=== PATIENT | female | born 1970 | race Caucasian/White ===

== ENCOUNTER → 2017-10-01 09:59 | Outpatient (CLI) | payer OTHER, SELFPAY ==
--- NOTE | 2017-10-01 | PATH_ITS ---
Note [facility] Accession Number: [id number] TESTS RESULT FLAG UNITS REF RANGE LAB Clinician Provided Cytology Information No. of containers..01 ThinPrep Vial No. of containers..00 Previously Prepared Cytology Slide R INFERIOR THYROID DIAGNOSIS: 02 RIGHT INFERIOR THYROID NODULE: BETHESDA CATEGORY III. FOLLICULAR LESION OF UNDETERMINED SIGNIFICANCE. COMMENT The specimen consists of abundant follicular cells with scant colloid. A few microfollicles are present with mild nuclear pleomorphism and overlapping. Cytologic features of papillary carcinoma are not identified. The differential diagnosis includes cellular adenomatoid nodule and follicular neoplasm. A repeat aspirate after an appropriate interval of observation may be helpful if clinically indicated. Pathologist ICD10: 02 R89.6 02 Mireya Harkins MD, Pathologist NPI- [id number] Ari Liang, Air Surveillance Operator ([facility]) 01 30 CC, PINK, CLEAR Also, received 5 alcohol fixed, 5 quick stained, and 1 RNA vial for studies. /HKH FLAG LEGEND: L-Low Normal,H-High Normal,LL-Alert Low,HH-Alert High <-Panic Low,>-Panic High,A-Abnormal,AA-Critical Abnormal Performed at: 01 =Z [facility] [address] [address], [place] [address] Blaise oBnilla MD, 02 LCLWA [facility] [address] [place] [id number] Mehran Garcia MD, A duplicate report has been generated due to demographic updates. Performed at: [address] [address], [place], [place] [id number] MD Blaise Bonilla MD Phone: [phone]
--- NOTE | 2017-10-01 | DI.US.S_ITS ---
PROCEDURE: US FINE NEEDLE ASPIRATION INDICATIONS: 47 year-old female with dominant inferior right thyroid nodule. TECHNIQUE: The indications, alternatives, benefits, risks, and complications of the procedure were explained to the patient. Written informed consent was obtained and placed in the chart. The thyroid region was examined sonographically and a site was chosen for ultrasound guided percutaneous sampling. The skin was prepared and draped in the usual fashion, and anesthetized with 1% lidocaine infiltrated from the skin down to the thyroid gland. Multiple passes were then performed, with contents emptied into an appropriate pathology specimen container. A bandage was applied to the area of access at completion of the study. COMPARISON: [facility], [place], US THYROID, 09/07/2017, 21:04. FINDINGS: Location(s) of lesion(s) sampled: Inferior right thyroid lobe dominant nodule, with intermediate suspicion morphology. Larue: 25 and 22 gauge hypodermic needles. Number of passes: 6 total; 4 with 25 gauge, and 2 with 22 gauge. Medications: 1% lidocaine for local anaesthesia. Complications: None. IMPRESSION: Successful ultrasound-guided thyroid nodule fine needle aspiration, with cytology results pending. Please see chart below for management recommendations based on cytology results. [place] [facility] ReportingRecommendationsNon-diagnostic* Repeat US-guided FNA, with on-site cytology evaluation if possible. * Repeated non-diagnostic nodules without high suspicion US features: close observation vs surgical consult. * Consider surgery if nodule has high suspicion US features, grows >20% in 2 dimensions on followup, or patient has clinical risk factors for malignancy. Benign* If nodule has high suspicion US features: repeat US and FNA within 12 months. * If nodule has low to intermediate suspicion US features: repeat US at 12-24 months. If nodule grows (20% increase in at least 2 dimensions, with minimal increase of 2 mm or >50% change in volume), or development of new suspicious US features, then repeat FNA or continue followup. * If nodule has very low suspicion US features: followup US at >24 months. Atypia of undetermined significance, follicular lesion of undetermined significanceRepeat FNA, molecular testing, followup US, or surgical consult.Follicular neoplasm, suspicious for follicular neoplasmSurgical consult; also consider molecular testing. Suspicious for malignancySurgical consult.MalignantSurgical consult. Dictated by: Eh Olmstead M.D. on 10/01/2017 at 11:31 Approved by: Eh Olmstead M.D. on 10/01/2017 at 11:35
== END ==
PROVIDERS: Visit Provider Otolaryngology
DX: E04.1 Nontoxic single thyroid nodule (principal)
CPT/HCPCS: 10022; 76942

== ENCOUNTER → 2019-09-14 07:20 | Outpatient (CLI) | payer OTHER, SELFPAY ==
--- NOTE | 2019-09-14 | DI.US.S_ITS ---
PROCEDURE: US THYROID INDICATIONS: FOLLOW-UP NODULES TECHNIQUE: Real-time scanning was performed of the thyroid gland, with image documentation. COMPARISON: [facility], US, US FINE NEEDLE ASPIRATION, 10/01/2017, 10:35. FINDINGS: Right: Thyroid lobe measures 2.8 x 3.2 x 6.2 cm, and is heterogeneous in echotexture. Left: Thyroid lobe measures 1.4 x 1.4 x 4.8 cm, and is heterogeneous in echotexture. Isthmus: 2 mm thick. Nodule number: 1 Location: Left thyroid lobe middle third Size: 1.3 x 1.0 x 1.9 cm. Composition: Predominantly cystic Echogenicity: Hypoechoic Shape: Wider than tall Margins: Smoothly marginated Echogenic foci: Several punctate Total points: 5 ACR TI-RADS category: Category 4, and given the average size of less than 1.5 cm followup by ultrasound is recommended in 1, 2, 3 and 5 years from initial identification (10/01/17) Nodule number: 2 Location: Middle third left thyroid lobe Size: 1.3 x 1.0 x 1.0 cm. Composition: Solid Echogenicity: Isoechoic Shape: Wider than tall Margins: Smoothly marginated Echogenic foci: None Total points: 3 ACR TI-RADS category: Category 3, and given the average size of less than 1.5 cm followup sonographic evaluation is recommended at 1, 3, and 5 years from initial identification in 2018. Nodule number: 3 Location: Inferior third left thyroid lobe Size: 1.5 x 0.6 x 0.9 cm. Composition: Solid Echogenicity: Hypoechoic Shape: Wider than tall Margins: Ill-defined Echogenic foci: None Total points: 3 ACR TI-RADS category: Category 3, and given the small size followup by ultrasound at 1, 3 and 5 years from initial identification is recommended (2018). Nodule number: 4 Location: Lower two thirds right thyroid lobe Size: 3.8 x 2.5 x 3.1 cm. Composition: Solid Echogenicity: Hypoechoic Shape: Wider than tall Margins: Smoothly marginated Echogenic foci: None Total points: 4 ACR TI-RADS category: Category 4, this nodule was previously biopsied, repeat biopsy could be performed if clinically indicated. Otherwise, followup at 1, 2, 3 and 5 years from initial identification would be recommended. Nodule number: 5 Location: Superior third right thyroid lobe Size: 1.1 x 0.9 x 0.9 cm. Composition: Solid Echogenicity: Isoechoic Shape: Wider than tall Margins: Smoothly marginated Echogenic foci: None Total points: 4 ACR TI-RADS category: Category 4, and given small size less than 1.5 cm average followup in 1, 2, 3 and 5 years from the initial identification is recommended IMPRESSION: Followup recommendations based on standard evaluation of multiple thyroid nodules present bilaterally is available above. Please note that this patient has a dominant right inferior thyroid nodule which was previously biopsied. ACR TI-RADS definitions and recommendations: TI-RADS 1 (benign): 0 points. FNA not needed. TI-RADS 2 (not suspicious): 2 points. FNA not needed. TI-RADS 3 (mildly suspicious): 3 points. * FNA if 2.5 cm or larger, follow up if 1.5 cm or larger (at 1, 3, and 5 years). TI-RADS 4 (moderately suspicious): 4-6 points. * FNA if 1.5 cm or larger, follow up if 1 cm or larger (at 1, 2, 3, and 5 years). TI-RADS 5 (highly suspicious): 7 points or more. * FNA if 1 cm or larger, follow up if 0.5 cm or larger (every year for 5 years). Dictated by: Ahmet Lora M.D. on 09/14/2019 at 12:57 Approved by: Ahmet Lora M.D. on 09/14/2019 at 13:39
== END ==
PROVIDERS: PCP Nurse Practitioner; Referring Provider Nurse Practitioner; Visit Provider Nurse Practitioner
DX: E04.2 Nontoxic multinodular goiter (principal)
CPT/HCPCS: 76536

== ENCOUNTER → 2021-03-01 09:21 | Outpatient (CLI) | payer OTHER, SELFPAY ==
--- NOTE | 2021-03-01 | DI.US.S_ITS ---
PROCEDURE: US THYROID INDICATIONS: THYROID NODULES TECHNIQUE: Real-time scanning was performed of the thyroid gland, with image documentation. COMPARISON: US, US FINE NEEDLE ASPIRATION, 10/01/2017, 10:35. [facility], [place], US THYROID, 09/07/2017, 21:04. [facility], US, US THYROID, 09/14/2019, 7:49. FINDINGS: Right: Thyroid lobe measures 6.8 x 3.4 x 2.8 cm, and is diffusely heterogeneous in echotexture. Left: Thyroid lobe measures 5.8 x 1.5 x 1.6 cm, and is diffusely heterogeneous in echotexture. Isthmus: 2.1 mm thick. Nodule number: 1 Location: Left superior Size: 0.9 x 0.6 x 0.5 cm. Composition: Solid Echogenicity: Hypoechoic Shape: wider than tall. Margins: Smooth Echogenic foci: None Total points: 4 ACR TI-RADS category: Moderately suspicious Nodule number: 2 Location: Left mid posterior Size: Unchanged at 1.2 x 1.0 x 0.4 cm. Composition: Solid Echogenicity: Hypoechoic Shape: wider than tall. Margins: Ill-defined Echogenic foci: None Total points: 5 ACR TI-RADS category: Moderately suspicious Nodule number: 3 Location: Left inferior Size: 0.7 x 0.4 x 0.4 cm. Composition: Solid Echogenicity: Hypoechoic Shape: wider than tall. Margins: Smooth Echogenic foci: None Total points: 4 ACR TI-RADS category: Moderately suspicious Nodule number: 4 Location: Right inferior (previously biopsied) Size: Unchanged at 3.8 x 3.3 x 2.6 cm. Composition: Solid Echogenicity: Hypoechoic Shape: wider than tall. Margins: Smooth Echogenic foci: None Total points: 4 ACR TI-RADS category: Moderately suspicious Nodule number: 5 Location: Right superior Size: Unchanged 0.9 x 1.0 x 1.0 cm. Composition: Solid Echogenicity: Hypoechoic Shape: wider than tall. Margins: Smooth Echogenic foci: Not requested. Total points: 4 ACR TI-RADS category: Moderately suspicious IMPRESSION: Stable appearance of previously visualized thyroid nodules and there are new subcentimeter nodules on the left as above. Recommend continued followup ultrasound as detailed below. ACR TI-RADS definitions and recommendations: TI-RADS 1 (benign): 0 points. FNA not needed. TI-RADS 2 (not suspicious): 2 points. FNA not needed. TI-RADS 3 (mildly suspicious): 3 points. * FNA if 2.5 cm or larger, follow up if 1.5 cm or larger (at 1, 3, and 5 years). TI-RADS 4 (moderately suspicious): 4-6 points. * FNA if 1.5 cm or larger, follow up if 1 cm or larger (at 1, 2, 3, and 5 years). TI-RADS 5 (highly suspicious): 7 points or more. * FNA if 1 cm or larger, follow up if 0.5 cm or larger (every year for 5 years). Dictated by: Deacon Hutchinson [facility] Interpreted: Blaise Ocampo MD on 03/01/2021 at 11:10 Transcribed by: MARCELL on 03/01/2021 at 11:15 Approved by: Blaise Ocampo M.D. on 03/02/2021 at 1:02
== END ==
PROVIDERS: PCP Physician Assistant; Referring Provider Physician Assistant; Visit Provider Physician Assistant
DX: E04.2 Nontoxic multinodular goiter (principal)
CPT/HCPCS: 76536

== ENCOUNTER → 2021-10-04 14:39 | Outpatient (CLI) | payer OTHER, SELFPAY ==
--- NOTE | 2021-10-04 | DI.US.S_ITS ---
PROCEDURE: US THYROID INDICATIONS: SINGLE THYROID NODULE TECHNIQUE: Real-time scanning was performed of the thyroid gland, with image documentation. COMPARISON: [facility], US, US THYROID, 03/01/2021, 9:54. FINDINGS: Right: Thyroid lobe measures 6.2 x 2.8 x 3.0 cm, and is homogeneous in echotexture. Left: Thyroid lobe measures 4.3 x 1.9 x 1 point cm, and is homogenous in echotexture. Isthmus: 0.3 cm thick. Nodule number: Right #1 Location: Right superior posterior Size: 1.0 x 0.9 x 0.7 cm, not previously measured Composition: Solid Echogenicity: Hypoechoic Shape: Wider than tall Margins: Smooth Echogenic foci: None Total points: 4 ACR TI-RADS category: Moderately suspicious Nodule number: Right #2 Location: Right superior anterior Size: 0.7 x 0.7 x 0.5 cm (previously 1.0 x 0.9 x 1.0 cm) Composition: Solid Echogenicity: Hypoechoic Shape: Wider than tall Margins: Smooth Echogenic foci: None Total points: 4 ACR TI-RADS category: Moderately suspicious Nodule number: Right #3 Location: Right inferior Size: 3.9 x 3.5 x 2.8 cm (previously 3.8 x 3.3 x 2.6 cm) Composition: Predominantly solid Echogenicity: Hypoechoic Shape: wider than tall. Margins: Smooth Echogenic foci: None Total points: 4 ACR TI-RADS category: Moderately suspicious Nodule number: Left #1 Location: Left superior lateral Size: 0.8 x 0.5 x 0.5 cm (previously 0.9 x 0.6 x 0.5 cm). Composition: Solid Echogenicity: Isoechoic Shape: wider than tall. Margins: Smooth Echogenic foci: None Total points: 3 ACR TI-RADS category: Mildly suspicious Additional less suspicious small left-sided thyroid nodules are also seen. IMPRESSION: Multiple stable thyroid nodules as well as a few small subcentimeter nodules that may be new. Recommend continued ultrasound follow-up based on guidelines provided below. ACR TI-RADS definitions and recommendations: TI-RADS 1 (benign): 0 points. FNA not needed. TI-RADS 2 (not suspicious): 2 points. FNA not needed. TI-RADS 3 (mildly suspicious): 3 points. * FNA if 2.5 cm or larger, follow up if 1.5 cm or larger (at 1, 3, and 5 years). TI-RADS 4 (moderately suspicious): 4-6 points. * FNA if 1.5 cm or larger, follow up if 1 cm or larger (at 1, 2, 3, and 5 years). TI-RADS 5 (highly suspicious): 7 points or more. * FNA if 1 cm or larger, follow up if 0.5 cm or larger (every year for 5 years). Dictated by: Sahil Perez M.D. on 10/04/2021 at 16:25 Approved by: Sahil Perez M.D. on 10/04/2021 at 16:34
== END ==
PROVIDERS: PCP Physician Assistant; Referring Provider Physician Assistant; Visit Provider Physician Assistant
DX: E04.2 Nontoxic multinodular goiter (principal)
CPT/HCPCS: 76536

== ENCOUNTER → 2022-06-25 13:34 | Outpatient (CLI) | payer OTHER, SELFPAY ==
[2022-06-25 14:38] LABS: Add Manual Diff / Slide Review NO; Basophils Absolute Auto 100 /uL (0-100); Basophils Percent Auto 1.7 % (0-2); Eosinophils Absolute Auto 200 /uL (0-450); Eosinophils Percent Auto 2.5 % (2-4); Hematocrit 41.4 % (36-46); Hemoglobin 13.9 g/dL (12.0-16.0); Lymphocytes Absolute Auto 3000 /uL (1100-4500); Lymphocytes Percent Auto 37.2 % (25-40); Mean Corpuscular HGB Conc 33.5 % (30-36); Mean Corpuscular Hemoglobin 28.8 PG (26-34); Mean Corpuscular Volume 85.9 fL (80-100); Monocytes Absolute Auto 700 /uL (0-900); Monocytes Percent Auto 8.1 % (3-14); Neutrophils Absolute Auto 4100 /uL (1500-7000); Neutrophils Percent Auto 50.5 % (50-75); Platelet Count 331 X10^3/uL (150-400); Red Blood Cell Count 4.82 X10^6/uL (4.0-5.2); Red Cell Distribution Width 13.5 % (11.6-14.8)
[2022-06-25 14:55] LABS: Hemoglobin A1C% w Est Avg Glu 5.9 % (4.0-6.0)
[2022-06-25 14:59] LABS: Alanine Aminotransferase 20 IU/L (<35); Albumin 4.3 g/dL (3.5-5.0); Albumin Globulin Ratio 1.5 (1.0-2.8); Alkaline Phosphatase 85 U/L (38-126); Aspartate Aminotransferase 21 IU/L (14-36); BUN Creatinine Ratio 14.9 (6-22); Bilirubin Total 0.5 mg/dL (0.2-1.3); Blood Urea Nitrogen 10 mg/dL (7-17); Calcium 9.2 mg/dL (8.4-10.2); Carbon Dioxide 28 mmol/L (22-32); Chloride 98 mmol/L (98-107); Cholesterol 249 mg/dL (140-199); Estimated Glomerular Filt Rate > 60 mL/min (>60); Globulin 2.9 g/dL (1.7-4.1); Glucose 98 mg/dL (70-100); HDL Cholesterol 80 mg/dL (40-60); HEMOLYSIS < 15 (0-50); LDL Cholesterol Calculated 134 mg/dL (<100); Potassium 4.1 mmol/L (3.4-5.1); Sodium 135 mmol/L (137-145); Total Protein 7.2 g/dL (6.3-8.2); Triglycerides 175 mg/dL (35-150)
[2022-06-25 15:24] LABS: Thyroid Stimulating Hormone 0.336 uIU/mL (0.47-4.68)
[2022-06-25 17:22] LABS: Creatinine Urine Random 17.1 mg/dL
[2022-06-25 17:25] LABS: Microalbumin Urine Random < 0.6 mg/dL (0-1.6)
[2022-06-27 15:41] LABS: Thyroid Peroxidase Antibodies 13 IU/mL (0-34); Triiodothyronine T3 Total 118 ng/dL (71-180)
[2022-07-11 20:07] LABS: Thyroglobulin Level 65 ng/mL (.)
== END ==
PROVIDERS: PCP Physician Assistant; Referring Provider Family Medicine; Visit Provider Family Medicine
DX: E88.81 Metabolic syndrome and other insulin resistance (principal); R73.03 Prediabetes; I10 Essential (primary) hypertension; E04.1 Nontoxic single thyroid nodule; R09.89 Other specified symptoms and signs involving the circulatory and respiratory systems
CPT/HCPCS: 36415; 80053; 80061; 82043; 82570; 83036; 83525; 84432; 84436; 84443; 84480; 85025; 86376

== ENCOUNTER → 2022-07-02 10:59 | Outpatient (CLI) | payer OTHER, SELFPAY ==
--- NOTE | 2022-07-02 | DI.US.S_ITS ---
PROCEDURE: US THYROID INDICATIONS: Nontoxic single thyroid nodule TECHNIQUE: Real-time scanning was performed of the thyroid gland, with image documentation. COMPARISON: [facility], US, US THYROID, 10/04/2021, 15:54. FINDINGS: New right superior thyroid nodule measuring 1 cm, solid and hypoechoic with no internal echogenic foci. New left mid thyroid nodule measuring 5 mm, solid and hypoechoic with no internal echogenic foci. New left medial inferior thyroid nodule measuring 1 cm, spongiform and benign in appearance. Previously described right superior thyroid nodule is decreased in size, again appearing solid and hypoechoic. Previously described right middle/inferior thyroid nodule is unchanged in size, again predominantly solid and hypoechoic but with no internal echogenic foci. Previously described left superior lateral thyroid nodule is unchanged in size. IMPRESSION: Previously described thyroid nodules are all unchanged in size. There are 3 new thyroid nodules identified, all mildly suspicious and less than 1 cm in size. Continued follow-up of these nodules is recommended. Dictated by: Atul Serna M.D. on 07/02/2022 at 13:33 Approved by: Atul Serna M.D. on 07/02/2022 at 13:35
== END ==
PROVIDERS: PCP Physician Assistant; Referring Provider Family Medicine; Visit Provider Family Medicine
DX: E04.2 Nontoxic multinodular goiter (principal); R09.89 Other specified symptoms and signs involving the circulatory and respiratory systems
CPT/HCPCS: 76536

== ENCOUNTER 2022-12-09 12:20 | Day surgery (SDC) | payer OTHER, SELFPAY ==
[2022-12-03 08:20] VITALS: BMI 35.7
[2022-12-09 13:04] VITALS: BP 140/89; PULSE 69; RESP 16; TEMP 36.3; O2SAT 99; BMI 35.7
--- NOTE | 2022-12-09 13:11 | PM.PREOP ---
Pre-operative Note Interval Note History & Physical reviewed/Exam performed by Physician: Yes Changes to H&P: No
[2022-12-09] MEDS: LACTATED RINGERS 1,000 ML 42 ML IV (13:18)
[2022-12-09] MEDS: SCOPOLAMINE 1 PATCH TOP (13:26)
[2022-12-09] MEDS: CEFAZOLIN 2 GM/100 ML PREMIX 100 ML IV (13:46)
--- NOTE | 2022-12-09 13:53 | SUR.OPER ---
Supine on padded OR bed, head on pillow, arms secured on padded arm boards at <90 degrees abduction, legs uncrossed, safety belt at thigh, tape over blanket over lower legs.
[2022-12-09] MEDS: BUPIVACAINE 0.5% (PF) 30 ML, EPINEPHrine 0.15 MG INJ (14:00)
[2022-12-09 14:19] VITALS: BP 141/67; PULSE 75; RESP 12; TEMP 36.1; O2SAT 96
[2022-12-09 14:23] VITALS: BP 127/66; PULSE 73; RESP 11; O2SAT 97
--- NOTE | 2022-12-09 14:23 | P.OP_ITS ---
Operative Date/Time/Diagnoses Date of procedure: 12/09/22 Time of procedure: 14:23 Pre-op diagnosis: Umbilical hernia, symptomatic, nonrecurrent, not strangulated. Post-op diagnosis: same Procedure & Clinicians Procedure: Umbilical hernia repair Same procedure as scheduled: Yes Indications: Symptomatic umbilical hernia Surgeon: Khushobo Jesus Health Plan Manager: Reji Ashraf Anesthesia Type: General Operative Notes Findings: Umbilical hernia approximately 1.5 cm in maximal diameter. A small size Ventralex mesh was placed through the defect. Procedure in detail: Patient was taken to the operating room and placed supine on the operating room table. Preoperative antibiotics were administered bilateral SCDs were in place. A general endotracheal anesthesia was induced and a time-out was performed. The abdomen was prepped and draped in the usual sterile fashion. Local anesthetic was infused below the umbilicus and a 10. Blade scalpel was used to incise the skin in a curvilinear fashion below the umbilicus in the natural curvature of the skin. Using electrocautery this incision was carried down through the subcutaneous tissues. The umbilical hernia sac was encountered and using hemostats dissector the hernia was isolated and reduced back into the abdomen. At this time the fascial edges of the hernia were inspected and cleared. The hernia was measured at 1.5 cm in maximal diameter. A Ventralex mesh was placed into the defect. A 2-0 Prolene suture was used to secure the mesh to the fascial edges and an additional Prolene suture was placed through the fascia to close the defect over top of the mesh using a [id number]-[id number] in the middle. A 3-0 Vicryl suture was then used to tack down the stalk of the umbilicus and closed the subcutaneous space. 4-0 Monocryl was used to close the skin this was dressed with Steri-Strips and gauze and a Tegaderm. The remainder of the local anesthesia was infused around the area and the patient went in good condition to the postoperative care unit there were no complications and the EBL was minimal. Post-operative Condition: stable Disposition: PACU Plan for aftercare: Called and discussed with Saul as well as provided the usual postoperative instructions in the preop and office area as well as instructions which a written in the discharge paperwork.
[2022-12-09 14:28] VITALS: BP 123/73; PULSE 75; RESP 13; O2SAT 97
[2022-12-09 14:45] VITALS: BP 126/75; PULSE 73; RESP 18; TEMP 35.9; O2SAT 98
== END 2022-12-09 15:03 | disposition home or self-care (01) ==
PROVIDERS: PCP Nurse Practitioner Family; Referring Provider Surgery; Visit Provider Surgery
PROC: (CPT 49591; principal; 2022-12-09 13:45)
DX: K42.9 Umbilical hernia without obstruction or gangrene (principal)
CPT/HCPCS: 49591; J0171; J0330; J0690; J1100; J1885; J2405; J2704; J3010; J3490

== ENCOUNTER → 2023-03-24 07:43 | Outpatient (CLI) | payer OTHER, SELFPAY ==
--- NOTE | 2023-03-24 | DI.US.S_ITS ---
PROCEDURE: US ABDOMEN LIMITED INDICATIONS: NONALCOHOLIC STEATOHEPATITIS (ROGERS) TECHNIQUE: Real-time focused scanning was performed of the abdomen, with image documentation. COMPARISON: [facility] [place] [place], CT ABDOMEN/PELVIS WITH CONTRAST, 10/23/2022, 20:20. FINDINGS: The liver demonstrates normal size. The liver demonstrates generalized mildly increased echogenicity. This decreases ultrasound sensitivity for detection of hepatic masses. No findings of gallstones or sludge are seen. The gallbladder wall is not thickened, measuring 3 mm or less. No specific pericholecystic fluid is seen. The sonographic Weller sign is negative. There is no biliary dilatation, the common bile duct measures 4-5 mm. No significant pancreatic abnormality is seen on these images. This study is limited by body habitus. IMPRESSION: Mildly increased liver echogenicity, which is consistent with the given clinical history of ROGERS. Dictated by: Andry Castro M.D. on 03/24/2023 at 10:41 Approved by: Andry Castro M.D. on 03/24/2023 at 10:42
== END ==
PROVIDERS: PCP Nurse Practitioner Family; Referring Provider Nurse Practitioner Family; Visit Provider Nurse Practitioner Family
DX: K75.81 Nonalcoholic steatohepatitis (NASH) (principal)
CPT/HCPCS: 76705

== ENCOUNTER → 2023-09-30 10:05 | Outpatient (CLI) | payer OTHER, SELFPAY ==
--- NOTE | 2023-09-30 10:06 | DI.US.S_ITS ---
PROCEDURE: US THYROID INDICATIONS: THYROID NODULE TECHNIQUE: Real-time scanning was performed of the thyroid gland, with image documentation. COMPARISON: [facility], US, US THYROID, 09/14/2019, 7:49. [facility], RG, US THYROID, 09/07/2017, 21:04. [facility], US, US THYROID, 07/02/2022, 11:12. FINDINGS: Thyroid: Right lobe measures 6.6 x 2.7 x 3.8 cm. Left lobe measures 5.2 x 1.3 x 1.3 cm. Isthmus is 0.4 cm thick. Echotexture is heterogeneous. Nodule number: 1 Location: Right mid/inferior Size: 4.3 x 2.7 x 3.6 cm. (this nodule is not significantly changed compared to the prior study but has increased over time since initial imaging evaluation on September 07, 2017 which measured 3.4 x 2.2 x 2.6 cm. This nodule was previously sampled via FNA with benign results). Composition: Solid Echogenicity: Hyperechoic Shape: wider than tall. Margins: Smooth Echogenic foci: None Total points: 4 ACR TI-RADS category: Moderately suspicious Nodule number: 2 Location: Right superior/posterior Size: 0.7 x 0.5 x 0.7 cm. Composition: Solid Echogenicity: Hypoechoic Shape: wider than tall. Margins: Smooth Echogenic foci: None Total points: 4 ACR TI-RADS category: Moderately suspicious Nodule number: 3 Location: Right superior/anterior Size: 0.7 x 0.5 x 0.6 cm. Composition: Solid Echogenicity: Hypoechoic Shape: wider than tall. Margins: Smooth Echogenic foci: None Total points: 4 ACR TI-RADS category: Moderately suspicious Nodule number: 4 Location: Left superior Size: 0.9 x 0.5 x 0.7 cm. Composition: Solid Echogenicity: Hypoechoic Shape: wider than tall. Margins: Smooth Echogenic foci: None Total points: 4 ACR TI-RADS category: Moderately suspicious Nodule number: 5 Location: Left inferior This nodule is not well seen on today's evaluation. Previously, this nodule measured up to 0.8 cm and had sonographic characteristics of a TI-RADS 4 nodule (moderately suspicious). IMPRESSION: Redemonstration of multiple moderately suspicious (TI-RADS 4) bilateral thyroid nodules as detailed above. These demonstrate no significant interval change in size or appearance. However, the largest nodule (labeled as nodule #1) in the right superior/anterior lobe as demonstrated greater than 50% increase in volume since initial fine-needle aspiration. Recommend further evaluation with repeat fine-needle aspiration. Other thyroid nodules can be followed with repeat imaging in 1 year. ACR TI-RADS definitions and recommendations: TI-RADS 1 (benign): 0 points. FNA not needed. TI-RADS 2 (not suspicious): 2 points. FNA not needed. TI-RADS 3 (mildly suspicious): 3 points. * FNA if 2.5 cm or larger, follow up if 1.5 cm or larger (at 1, 3, and 5 years). TI-RADS 4 (moderately suspicious): 4-6 points. * FNA if 1.5 cm or larger, follow up if 1 cm or larger (at 1, 2, 3, and 5 years). TI-RADS 5 (highly suspicious): 7 points or more. * FNA if 1 cm or larger, follow up if 0.5 cm or larger (every year for 5 years). Dictated by: Tobias Arboleda M.D. on 10/01/2023 at 9:25 Approved by: Tobias Arboleda M.D. on 10/01/2023 at 9:53
== END ==
LOC: US 10:06
PROVIDERS: PCP Nurse Practitioner Family; Referring Provider Nurse Practitioner Family; Visit Provider Nurse Practitioner Family
DX: E04.2 Nontoxic multinodular goiter (principal)
CPT/HCPCS: 76536

== ENCOUNTER → 2023-11-24 14:04 | Outpatient (CLI) | payer OTHER, SELFPAY ==
--- NOTE | 2023-11-24 14:05 | DI.US.S_ITS ---
PROCEDURE: US FINE NEEDLE ASPIRATION INDICATIONS: THYROID NODULE TECHNIQUE: The indications, alternatives, benefits, risks, and complications of the procedure were explained to the patient. Written informed consent was obtained and placed in the chart. The thyroid region was examined sonographically and a site was chosen for ultrasound guided percutaneous sampling. The skin was prepared and draped in the usual fashion, and anesthetized with 1% lidocaine infiltrated from the skin down to the thyroid gland. Multiple passes were then performed, with contents emptied into an appropriate pathology specimen container. A bandage was applied to the area of access at completion of the study. COMPARISON: [facility], US, US FINE NEEDLE ASPIRATION, 10/01/2017, 10:35. FINDINGS: Location(s) of lesion(s) sampled: Right thyroid Rupert: 25 gauge hypodermic needles. Number of passes: 5 Medications: 1% lidocaine for local anaesthesia. Complications: None. IMPRESSION: Successful ultrasound-guided thyroid nodule fine needle aspiration, with cytology results pending. Please see chart below for management recommendations based on cytology results. [facility] ReportingRecommendationsNon-diagnostic* Repeat US-guided FNA, with on-site cytology evaluation if possible. * Repeated non-diagnostic nodules without high suspicion US features: close observation vs surgical consult. * Consider surgery if nodule has high suspicion US features, grows >20% in 2 dimensions on followup, or patient has clinical risk factors for malignancy. Benign* If nodule has high suspicion US features: repeat US and FNA within 12 months. * If nodule has low to intermediate suspicion US features: repeat US at 12-24 months. If nodule grows (20% increase in at least 2 dimensions, with minimal increase of 2 mm or >50% change in volume), or development of new suspicious US features, then repeat FNA or continue followup. * If nodule has very low suspicion US features: followup US at >24 months. Atypia of undetermined significance, follicular lesion of undetermined significanceRepeat FNA, molecular testing, followup US, or surgical consult.Follicular neoplasm, suspicious for follicular neoplasmSurgical consult; also consider molecular testing. Suspicious for malignancySurgical consult.MalignantSurgical consult. Dictated by: Tian Mobley M.D. on 11/24/2023 at 16:40 Approved by: Tian Mobley M.D. on 11/24/2023 at 16:41
--- NOTE | 2023-11-24 15:16 | PATH_ITS ---
Note [facility] Accession Number: [id number] TESTS RESULT FLAG UNITS REF RANGE LAB Clinician Provided Cytology Information No. of containers..01 Other (Miscellaneous) No. of containers..00 Previously Prepared Cytology Slide Source: RIGHT THYROID MASS #1 DIAGNOSIS: 01 RIGHT THYROID MASS #1, FINE NEEDLE ASPIRATION. INCONCLUSIVE. BETHESDA CATEGORY III. ATYPIA OF UNDETERMINED SIGNIFICANCE, SEE COMMENT. COMMENT: EXAMINATION OF THE SMEARS REVEALS A MILDLY CELLULAR ASPIRATE, COMPOSED OF COLLOID, MACROPHAGES AND BENIGN FOLLICULAR GROUPS WITH FOCAL HURTHLE CELL CHANGES. IN ADDITION, THERE ARE RARE GROUPS WHERE MILD NUCLEAR ENLARGEMENT, OVERLAPPING AND RARE NUCLEAR MEMBRANE IRREGULARITIES ARE NOTED. INTRANUCLEAR PSEUDOINCLUSIONS ARE NOT SEEN. THE RISK OF MALIGNANCY IN THE BETHESDA CATEGORY III IS 5-15%. ADDITIONAL MOLECULAR TESTING WILL BE PERFORMED ON THE SUBMITTED RNA VIAL FOR FURTHER EVALUATION. Pathologist ICD10: 01 E04.2 Signed out by: Tramaine Crooks MD, Pathologist NPI- [id number] Performed by: Brayden Kwok, Neonatal Intensive Care Unit Nurse ([facility]) Gross description: 01 30 CC, PINK, CLEAR RECIEVED: IN CYTOLYT WITH 5 ALCOHOL FIXED AND 5 QUICK STAINED SLIDES ALSO 1 RNA VIAL WILL ON 05-05-2024.VO /VDU 11/25/2023 0943 Local FLAG LEGEND: L-Low Normal,H-High Normal,LL-Alert Low,HH-Alert High <-Panic Low,>-Panic High,A-Abnormal,AA-Critical Abnormal Performed at: 01 =Z [facility] [address], [place] [address] Blaise Bonilla MD, Performed at: [address], [place], [place] [id number] MD Blaise Bonilla MD Phone: [phone]
== END ==
PROVIDERS: PCP Nurse Practitioner Family; Referring Provider Nurse Practitioner Family; Visit Provider Nurse Practitioner Family
DX: E04.2 Nontoxic multinodular goiter (principal)
CPT/HCPCS: 10005